=== PATIENT | female | born 1955 | race Caucasian/White ===

== ENCOUNTER 2016-07-11 00:27 | Inpatient (IN) | payer OTHER ==
[~2016-07-11] VITALS: Ht 157.5 cm; Wt 79.4 kg
--- NOTE | 2016-07-11 00:32 | ED CARDIAC/CP/PALPITATIONS ---
History of Present Illness General Chief Complaint: General Adult Stated Complaint: BIBA FOR EVAL OF STEMI Source: patient Exam Limitations: no limitations Vital Signs & Intake/Output Vital Signs & Intake/Output Vital Signs Date Time Temp Pulse Resp B/P Pulse O2 O2 Flow FiO2 Ox Delivery Rate 07/11 0211 100.3 118 18 88/62 98 Nasal 2.0L Cannula 07/11 0110 75 18 96/71 98 Nasal 2.0L Cannula 07/11 0100 99 Non 10L ReBreather 07/11 005 99.4 130 20 95/77 94 Non 10L ReBreather 07/11 0055 114 103/80 07/11 0040 86 20 104/67 98 Non 10L ReBreather 07/11 0039 164 20 127/73 07/11 003 164 20 127/73 99 Non 10L ReBreather Allergies Coded Allergies: MDX - Atorvastatin (From LIPITOR) ('AFFECTED MY LIVER', KIDNEY PROBLEM 01/03/12) Triage Nurses Notes Reviewed? yes Onset: Gradual Duration: hour(s): Timing: single episode today Quality/Severity: moderate, severe Location: substernal Radiation: no radiation Activities at Onset: none Prior Chest Pain/Card Workup: heart attack Aspirin Today: 325 mg x 1, provided by EMS HPI: 60 yo woman presents with palpitations. She shares that she had a pacer/defibrillator and that, "it went off at least 9 times." She notes that she feels her heart rate is rapid, but feels no chest pain or shortness of breath. She called 911. The medics found her pulse to be 180's, sbp 140's. Past History Travel History Traveled to [place] past 21 day No Medical History Any Pertinent Medical History? see below for history Cardiovascular: AFIB, CAD, hypertension Surgical History Surgical History: pacer/defibrillator Psychosocial History Who do you live with Patient/Self What is your primary language Eritrean Family History Hx Contributory? No Review of Systems Review of Systems Constitutional: Reports: no symptoms. EENTM: Reports: no symptoms. Respiratory: Reports: no symptoms. Cardiovascular: Reports: no symptoms. GI: Reports: no symptoms. Genitourinary: Reports: no symptoms. Musculoskeletal: Reports: no symptoms. Skin: Reports: no symptoms. Neurological/Psychological: Reports: no symptoms. Hematologic/Endocrine: Reports: no symptoms. Immunologic/Allergic: Reports: no symptoms. All Other Systems: Reviewed and Negative Physical Exam Physical Exam General Appearance: well developed/nourished, mild distress, moderate distress Head: atraumatic, normal appearance Eyes: Bilateral: normal appearance. Ears, Nose, Throat: normal pharynx, normal ENT inspection, hearing grossly normal Neck: normal inspection, supple, full range of motion Respiratory: normal breath sounds, chest non-tender, no respiratory distress, quiet respiration, lungs clear Cardiovascular: tachycardic Rectal: heme negative stool Back: normal inspection Extremities: normal inspection, normal capillary refill, normal range of motion, 1+edema Skin: intact, normal color, warm/dry Core Measures ACS in differential dx? Yes Severe Sepsis Present: No Septic Shock Present: No Progress Differential Diagnosis: AMI, atrial fibrillation, CHF/pulm edema, hypovolemia, musculoskeletal pain, pneumonia Plan of Care: Orders Procedure Date/time Status Patient Data 07/11 253 Active Admit to inpatient 07/11 0246 Active EKG 07/11 0128 Active B-TYPE NATRIURETIC PEP (BNP) 07/11 003 Complete TROPONIN LEVEL 07/11 31 Complete PARTIAL THROMBOPLASTIN TIME 07/11 31 Complete PROTHROMBIN TIME 07/11 003 Complete MAGNESIUM 07/11 003 Complete COMPREHENSIVE METABOLIC PANEL 07/11 003 Complete CBC WITHOUT DIFFERENTIAL 07/11 31 Complete EKG 07/11 0029 Active Current Medications Sig/Wilma Start time Last Medication Dose Stop Time Status Admin Metoprolol Tartrate 5 MG ONCE ONE 07/11 0130 CAN (Lopressor Inj. 5MG 07/11 0131 Per 5 Ml) Diltiazem HCl 125 MG Q24H 07/11 0115 CAN (Cardizem DRIP) Dextrose/Water 100 ML (Dextrose 5%) Diltiazem HCl 125 MG Q12H 07/11 0045 CAN (Cardizem DRIP) Sodium Chloride 100 ML (Normal Saline 0.9%) Laboratory Tests 07/11/16 0035: Anion Gap 17 H, Estimated GFR 20 L, BUN/Creatinine Ratio 13.6, Glucose 130 H, Calcium 9.6, Magnesium 1.5 L, Total Bilirubin 1.8 H, AST 38 H, ALT 28, Alkaline Phosphatase 108, Troponin I 0.50 *H, Igi-U-Dnjodjqtjrp Pept 8500 H, Total Protein 8.7 H, Albumin 4.2, Globulin 4.5 H, Albumin/Globulin Ratio 0.9 L, PT 14.7 H, INR 1.40 H, APTT 30, CBC w Diff NO MAN DIFF REQ, RBC 4.27, MCV 91.7, MCH 30.6, RDW 15.9 H, MPV 9.2, Gran % 76.2 H, Lymphocytes % 14.3 L, Monocytes % 9.0, Eosinophils % 0.1, Basophils % 0.4, Absolute Granulocytes 12.7 H, Absolute Lymphocytes 2.4, Absolute Monocytes 1.5 H, Absolute Eosinophils 0, Absolute Basophils 0.1, PUBS MCHC 33.4 07/11/16 0033: Rxk-K-Kgrxxztcsok Pept Cancelled Diagnostic Imaging: Viewed by Me: Radiology Read. Discussed w/RAD: Radiology Read. CXR Impression: no acute abnormality, no infiltrates, normal size heart, normal mediastinum Initial ED EKG: wide complex pulse in 180's Comments: PATIENT: FEI ROMERO PRESENT AGE: 60 PATIENT ACCOUNT NO: [id number] : 59 LOCATION: [facility] ORDERING PHYSICIAN: NATO FONTAINE MD SERVICE DATE: 07/11/16 EXAM TYPE: RAD - XRY-PORTABLE CHEST XRAY EXAMINATION: XR PORTABLE CHEST CLINICAL INFORMATION: Tachycardia. Shortness of breath COMPARISON: 01/03/2012 TECHNIQUE: Portable view of the chest was obtained. FINDINGS: Left chest wall AICD/pacer is unchanged. Median sternotomy wires appear intact. Surgical clips overlie the mediastinum. Cardiac leads overlie the chest. The lungs are well expanded. There is no dense consolidation, edema, or effusion. No pneumothorax. The cardiac silhouette remains prominent. No acute osseous abnormality. IMPRESSION: No acute pulmonary findings. DICTATED BY: TOMMY DEL ANGEL MD DATE/TIME DICTATED:07/11/1651 MAJOR ASSEMBLY INSPECTOR:SILVANA DATE/TIME TRANSCRIBED:07/11/1651 CONFIDENTIAL, DO NOT COPY WITHOUT APPROPRIATE AUTHORIZATION. <Electronically signed in Other Vendor System> SIGNED BY: TOMMY DEL ANGEL MD 07/11 Departure Departure Disposition: STILL A PATIENT Condition: Stable Clinical Impression Primary Impression: Atrial fibrillation with rapid ventricular response Secondary Impressions: Defibrillator discharge, Elevated troponin, Renal failure Referrals: FARENS MD,VALENTIN. Departure Forms: Customer Survey General Discharge Information Comments 07/11/16, 1;28am.... received notice of elevated troponin of 0.5... pt received aspirin 324mg en route via medics. Pt on heparin gtt. BBlocker held at present due to hypotension. Admission Note Spoke With: GIGI BOYD MD, V. Documentation of Exam: Documentation of any treatments & extenuating circumstances including Concerns Regarding Discharge (functional status, medication knowledge or non-compliance, living conditions, etc.) that warrant an admission rather than observation: pt in afib with rapid ventricular response, requires diltiazem drip. Pt also with positive troponin and recurrent defibrillator discharge and new onset renal failure... Pt merits icu admission for intensive medical management. Pt on heparin gtt, asprin given by medics. Bblocker held due to relative hypotension. Critical Care Note Critical Care Note Critical Care Time: 30-74 min
--- NOTE | 2016-07-11 00:35 | NUR ---
TRIAGE: BIBA FROM HOME S/P WOKE FROM SLEEP TO DEFIBRILATOR GOING OFF, REPORTS HX CA W/ CARDIAC CATH. ALSO REPORTING HX AFIB, NOT TAKING COUMADIN D/T BLADDER SURGERY LAST WEEK W/ BLADDER STENT PLACEMENT, WAS TO RESUME COUMDIN ON 07/11/16. HR: 130-170 AFIB ON MONITOR ON ARRIVAL, PATIENT ANXIOUS. DENIES ANY CP. REPORTING INTERMITTENT DRY HEAVES W/ NO VOMITTING. MD AT BEDSIDE ON ARRIVAL.
[2016-07-11 00:48] LABS: ABSOLUTE BASOPHIL COUNT 0.1 /CUMM (0.0-0.2); ABSOLUTE EOSINOPHIL COUNT 0 /CUMM (0.0-0.7); ABSOLUTE GRANULOCYTE CT 12.7 /CUMM (1.4-6.5); ABSOLUTE LYMPH COUNT 2.4 /CUMM (1.2-3.4); ABSOLUTE MONOCYTE COUNT 1.5 /CUMM (0.10-0.60); BASOPHIL % 0.4 % (0.0-2.0); EOSINOPHIL % 0.1 % (0-5); HEMATOCRIT 39.1 % (37-47); MEAN CORPUSCULAR HGB 30.6 PG (27.0-31.0); MEAN CORPUSCULAR HGB CONC 33.4 G/DL (33.0-37.0); MEAN CORPUSCULAR VOLUME 91.7 FL (81.0-99.0); MEAN PLATELET VOLUME 9.2 FL (7.4-10.4); PLATELET COUNT 93 /CUMM (130-400); RBC DISTRIBUTION WIDTH 15.9 % (11.5-14.5); RED BLOOD CELL CT 4.27 /CUMM (4.20-5.40); WHITE BLOOD CELL COUNT 16.7 /CUMM (4.8-10.8)
[2016-07-11 00:49] LABS: GRANULOCYTE % 76.2 % (42.2-75.2)
--- NOTE | 2016-07-11 00:57 | RADIOLOGY REPORT ---
EXAMINATION: XR PORTABLE CHEST CLINICAL INFORMATION: Tachycardia. Shortness of breath COMPARISON: 01/03/2012 TECHNIQUE: Portable view of the chest was obtained. FINDINGS: Left chest wall AICD/pacer is unchanged. Median sternotomy wires appear intact. Surgical clips overlie the mediastinum. Cardiac leads overlie the chest. The lungs are well expanded. There is no dense consolidation, edema, or effusion. No pneumothorax. The cardiac silhouette remains prominent. No acute osseous abnormality. IMPRESSION: No acute pulmonary findings.
[2016-07-11 00:59] LABS: PT 14.7 SEC (9.4-12.5); PTT 30 SEC (25-37)
--- NOTE | 2016-07-11 01:00 | NUR ---
PATIENT BP:103/80, MD AWARE. PATIENT ALSO REPORTING FEELING CLAMMY. NS BOLUS INITIATED AT THIS TIME PER MD/EMAR. TOLERATING WELL.
--- NOTE | 2016-07-11 01:15 | NUR ---
MD ZHEN DELGADOCED PATIENT, GUIAC NEGATIVE PER . HEPARIN BOLUS ADMINISTERED PER EMAR. TOLERATED WELL. HEPARIN DRIP INITIATED AT 19.1ML/HR, DOSE COMFIRMED W/ BETTYE GARCIA. CARDIZEM DRIP INITIATED AT 5ML/HR PER MD FONTAINE. TOLERATING WELL. HR:75-135 ON MONITOR, A-FIB W/ BRANCH BLOCK. PATIENT SWITCHED FROM NRB TO NASAL CANNULA AT 2L, O2:99% 2LNC.
--- NOTE | 2016-07-11 01:19 | NUR ---
SPOKE WITH PTS SON (RADHA [phone]), IS AWARE THAT PT IS HERE, IS GOING TO COME IN THE MORNING, WOULD LIKE TO BE CALLED WITH UPDATES
--- NOTE | 2016-07-11 01:24 | NUR ---
CRITICAL TEST RESULTS [id number] FEI ROMERO 60 F TESTS AND RESULTS: TROPONIN 0.50 Results received and read back by: BETTYE SNYDER Results received date and time: 07/11/16 0124 The following provider was notified of the results, and read the results back: Notified date and time: 07/11/16 at 0125
--- NOTE | 2016-07-11 01:37 | NUR ---
DR PA OFFICE CALLED AT THIS TIME FOR REQUEST OF TRANSFERR. CARTOGRAPHIC TECHNICIAN SERVICE WILL NOTIFY CARTOGRAPHIC TECHNICIAN DR TO RETURN CALL TO ER ATTENDING.
--- NOTE | 2016-07-11 02:04 | NUR ---
[facility] [employer] SERVICE CALLED BACK AND IS UNABLE TO CONTACT DR WILL CONTINUE TO TRY. DR FONTAINE NOTIFIED OF SITUTATION.
--- NOTE | 2016-07-11 02:07 | NUR ---
HR: 90-108 ON MONITOR, AFIB W/ BRANCH BLOCK REMAINS. PATIENT CONTINUES TO DENY ANY PAIN.
--- NOTE | 2016-07-11 02:21 | NUR ---
PATIENT ALERT AND ORIENTED X3, NOTED W/ MANUAL BP:88/62. FIRST LITER NS BOLUS COMPLETE, SECOND LITER NS INITIATED AT PRESENT PER EMAR/ DISCUSSION W/ MD FONTAINE. TOLERATING WELL. HR:100-126 ON MONITOR.
--- NOTE | 2016-07-11 02:54 | History & Physical ---
TANYA RAZA 07/11/16 0250: General Information and HPI MD Statement: I have seen and personally examined FEI VALLES and documented this H&P. The patient is a 60 year old F who presented with a patient stated chief complaint of [difibrillator dicharge]. Source of Information: patient, family Exam Limitations: poor historian History of Present Illness: Mrs Valles is a 60-year-old lady with an extensive cardiac history including atrial fibrillation on Coumadin, CAD with triple-vessel disease S/P CABG 2005, stent placement 2006, pacemaker/defibrillator implantation (2007), right femoral DVT, TIA, right carotid endarterectomy, bladder cancer S/P resection most recently on 07/02/2016 which also included bilateral stent placement, depression , anxiety, previous tobacco use, low back pain/left shoulder pain. Patient presented today with complaints of what she described as defibrillator discharge. She recently underwent a repeat bladder resection with bilateral ureteral stent placement for bladder CA on 07/02/2016 prior to which Coumadin was held for a few days. 2 days later she reports feeling a sensation of an electric jolt running across her face resulting in jaw clamping including an episode of tongue biting. She denies any LOC, headache, blurry vision associated with this but does endorse intermittent episodes of chills over the past couple of weeks. Allergies/Medications Allergies: Coded Allergies: atorvastatin (From Lipitor) ('AFFECTED MY LIVER'; KIDNEY PROBLEM? 07/11/16) Home Med list Amiodarone in Dextrose,Iso-Osm (Nexterone 360 MG/200 Ml Bag) 360 MG/200 ML (1.8 MG/ML) PLAST..BAG 1 UNIT IV SI HEART RATE AND RHYTHM RUN FOR FIRST SIX HOURS AT 1MG/MINUTE ( 360MG) NEXT 18 HOURS AT 0.5MG.MINUTE ( 540 MG) Duloxetine HCl (Cymbalta) 60 MG CAPSULE.DR 1 CAP PO DAILY PAIN MX (Reported) Furosemide (Lasix) 20 MG TABLET 1 TAB PO DAILY WATER PILL (Reported) Heparin (Heparin-1/2NS 25,000 Units/500) 25,000 UNIT/500 ML (50 UNIT/ML) IV.SOLN 12 u/H IV CONTINOUS INFUSION BLOOD THINNER 19ML/HOUR OF HEPARIN (12 UNITS/KG/HOUR) Isosorbide Mononitrate (Isosorbide Mononitrate ER) 60 MG TAB.ER.24H 1 TAB PO DAILY HEART HEALTH (Reported) Morphine Sulfate (Ms Contin) 30 MG TABLET.ER 1 TAB PO BIDP CHRONIC PAIN ( Reported) Morphine Sulfate (Ms Contin) 15 MG TABLET.ER 1 TAB PO BID PAIN MX (Reported) Oxycodone HCl (Roxicodone) 30 MG TABLET 1-2 TAB PO Q6P PRN CHRONIC PAIN ( Reported) Valsartan (Diovan) 80 MG TABLET 1 TAB PO DAILY BLOOD PRESSURE (Reported) Past History Travel History Traveled to [place] past 21 day No Medical History Neurological: NONE EENT: NONE Cardiovascular: AFIB, CAD, hypertension Respiratory: NONE Gastrointestinal: NONE Hepatic: NONE Renal: NONE Musculoskeletal: NONE Psychiatric: NONE Endocrine: NONE Blood Disorders: NONE Cancer(s): bladder cancer MACHINE I TRIMMER/Reproductive: NONE Surgical History Surgical History: pacer/defibrillator Past Family/Social History Functional Ability ADLs Independent: dressing, eating, toileting, bathing. Ambulation: independent Review of Systems Review of Systems Constitutional: Reports: see HPI. EENTM: Reports: no symptoms. Cardiovascular: Reports: see HPI. Respiratory: Reports: no symptoms. GI: Reports: no symptoms. Genitourinary: Reports: no symptoms. Musculoskeletal: Reports: no symptoms. Exam & Diagnostic Data Last 24 Hrs of Vital Signs/I&O Vital Signs & Intake/Output Vital Signs & Intake/Output Vital Signs Date Time Temp Pulse Resp B/P Pulse O2 O2 Flow FiO2 Ox Delivery Rate 07/11 0211 100.3 118 18 88/62 98 Nasal 2.0L Cannula 07/11 0110 75 18 96/71 98 Nasal 2.0L Cannula 07/11 0100 99 Non 10L ReBreather 07/11 0059 99.4 130 20 95/77 94 Non 10L ReBreather 07/11 0055 114 103/80 07/11 0040 86 20 104/67 98 Non 10L ReBreather 07/11 0039 164 20 127/73 07/11 0035 164 20 127/73 99 Non 10L ReBreather Physical Exam General Appearance Alert, Cooperative, No Acute Distress Skin No Breakdown HEENT PERRLA, Mucous Membr. moist/pink Cardiovascular Normal S1, Normal S2 Lungs Clear to Auscultation, Normal Air Movement Abdomen Normal Bowel Sounds, Soft, No Tenderness Neurological Normal Speech, Normal Tone Extremities No Cyanosis, Normal Pulses Vascular Pulses Symmetrical Last 24 Hrs of Labs/Nahum: 07/11/16 0035: Anion Gap 17 H, Estimated GFR 20 L, BUN/Creatinine Ratio 13.6, Glucose 130 H, Calcium 9.6, Magnesium 1.5 L, Total Bilirubin 1.8 H, AST 38 H, ALT 28, Alkaline Phosphatase 108, Troponin I 0.50 *H, Niw-D-Cgjycijkzdy Pept 8500 H, Total Protein 8.7 H, Albumin 4.2, Globulin 4.5 H, Albumin/Globulin Ratio 0.9 L, PT 14.7 H, INR 1.40 H, APTT 30, CBC w Diff NO MAN DIFF REQ, RBC 4.27, MCV 91.7, MCH 30.6, RDW 15.9 H, MPV 9.2, Gran % 76.2 H, Lymphocytes % 14.3 L, Monocytes % 9.0, Eosinophils % 0.1, Basophils % 0.4, Absolute Granulocytes 12.7 H, Absolute Lymphocytes 2.4, Absolute Monocytes 1.5 H, Absolute Eosinophils 0, Absolute Basophils 0.1, PUBS MCHC 33.4 Assessment/Plan Assessment: 60-year-old lady with an extensive cardiac history including atrial fibrillation on Coumadin, CAD with triple-vessel disease S/P CABG 2005, stent placement 2006, pacemaker/defibrillator implantation (2007), right femoral DVT, TIA, right carotid endarterectomy, bladder cancer S/P resection most recently on 07/02/2016 which also included bilateral stent placement, depression, anxiety, previous tobacco use, low back pain/left shoulder pain who presented today with complaints of defibrillator discharge. Problem list: 1. Probable pacemaker/defibrillator discharge 2. Narrow complex tachycardia 3. Elevated troponin 4. SIRS - Tmax 100.3, leukocytosis 16.7, HR > 100. UA: (+) large leukocyte esterase, nitrites, >75 WBCs 5. LYNNE vs undiagnosed CKD 6. Hyperkalemia Plan: * Admit to telemetry for continuos cardiac monitoring, Serial EKGs. Elevation in troponins likely secondary to narrow complex tachycardia vs defibrillator discharge. If symptomatic w/ chest pain will start her on heparin drip per ACS protocol. Cardiology consulted at this time. Plan for medtronic interrogation in the AM. Lipid panel for the AM * Rate control with cardizem GTT * Follow up urine and blood cultures. IV cephalosporin for UTI * Unsure as to her current baseline creatinine. Will adminsiter fluid resuscitation with NS, follow up renal function in the AM, K+ level. Echo in the am to assess EF * DVT prophylaxis: heparin * Diet: heart healthy * Cose status: full code As Ranked By This Provider Problem List: 1. Defibrillator discharge 2. Elevated troponin 3. Renal failure 4. Atrial fibrillation with rapid ventricular response 5. UTI (urinary tract infection) Core Measures/Miscellaneous Acute Coronary Syndrome ACS Diagnosis: No Cerebrovascular Accident CVA/TIA Diagnosis: No Congestive Heart Failure CHF Diagnosis: No Venous Thromboembolism VTE Risk Factors: Age > 40 VTE Prophylaxis Ordered Inpt: Pharm- Heparin No Mech VTE prophylaxis d/t: No contraindications No VTE Pharm Prophylaxis d/t: No contraindications VTE Diagnosis: No VTE Type: NONE VTE Confirmed by (Test): NONE Severe Sepsis Severe Sepsis Present: No Septic Shock Septic Shock Present: No Miscellaneous Documentation Attending Case Discussed With: GIGI BOYD MD, V. Primary Care Physician: UNKNOWN Patient sees these Specialists Dr Serrano (senior clinician at [place]) Level of Patient Care: Telemetry Resident Review Statement Resident Statement: examined this patient, discussed with newsroom intern, agreed with newsroom intern, discussed with family, reviewed EMR data (avail), discussed with nursing , reviewed images GIGI BOYD MD 07/11/16 0954: Review of Systems Review of Systems Constitutional: Reports: no symptoms, see HPI. Attending MD Review Statement Attending Statement Attending MD Statement: examined this patient, discuss w/resident/PA/INDUSTRIAL LABORER, reviewed EMR data (avail) Attending Assessment/Plan: This patient is a very complicated 60-year-old female who had myocardial infarction in 2005 followed by urgent bypass surgery. She subsequently received a defibrillator which was replaced about a year or 2 ago. This is a biventricular defibrillator device. Last evening the patient had by her count 9 defibrillator shocks and was brought to the emergency department. She actually gets most of her care in [place] but the ambulance took her to [facility], which was the closest hospital because she seemed unstable. Subsequently since she has been here she has not had any further defibrillator discharges. Her rhythm on the monitor appears to be mostly atrial fibrillation with biventricular pacing and occasional runs of what appear to be ventricular tachycardia versus rapid atrial fibrillation. Her initial electrocardiogram taken in the emergency department is consistent with ventricular tachycardia at a rate of 164. Subsequent EKGs have shown atrial fibrillation with biventricular pacing and some PVCs. Some of the monitor strips suggest short runs of ventricular tachycardia as well. She has been started on amiodarone. The patient is aware that she has atrial fibrillation. She is on warfarin but she states she is on this mainly for antiphospholipid syndrome. The patient states she has not previously had defibrillator discharges. She describes shortness of breath on exertion but no chest pains on exertion. She states in the past she was considered for heart transplant but was eventually turned down for this. On physical today she is awake and alert. She has no chest pain or shortness of breath. She appears to be in atrial fibrillation with some pacing on the monitor. Her chest is clear. Her heart reveals irregular rhythm but no murmurs. There is no peripheral edema. Her initial troponin was 0.5 but has increased to 5.5. Her device was extensively interrogated with the [employer] sales representative groceries. It appears that she had 8 shocks for tachycardia which on evaluation appear to all be rapid atrial fibrillation. she also had atrial tachycardia and atrial fibrillation greater than the last day. Most likely this patient had defibrillator shocks secondary to rapid atrial fibrillation, which is relatively new rhythm for her. She has been started on amiodarone and IV heparin for this. I discussed her case with Dr. Juany Phan who is covering for her regular doctor, Dr. Serrano in [place]. She agrees to take the patient in transfer to [facility] at this time. An echocardiogram has been done and will be sent with her.
--- NOTE | 2016-07-11 02:59 | NUR ---
HOUSE STAFF AT BEDSIDE. REPEAT BP ON PROGRESS.
--- NOTE | 2016-07-11 03:02 | NUR ---
BP:86/60, HOUSE STAFF AWARE. SECOND LITER NS CONTINUES TO INFUSE.
--- NOTE | 2016-07-11 03:03 | NUR ---
PER MD FONTAINE, CARDIZEM DRIP STOPPED AT THIS TIME. HOUSE STAFF AWARE. PER , 3RD LITER NS TO BE INITIATED AT THIS TIME. 3RD LITER INFUSING AT PRESENT PER EMAR. TOLERATING WELL.
--- NOTE | 2016-07-11 03:18 | NUR ---
PATIENT VOIDED APPROX 220ML CLOUDY YELLOW URINE INTO HAT IN TOILET IN ROOM. DENIES DIZZINESS/ LIGHTHEADEDNESS W/ AMBULATION. URINE SPECIMEN OBTAINED AND SENT TO LAB ([facility]).
--- NOTE | 2016-07-11 03:28 | NUR ---
MD ERNANDEZ (BEEPER [id number]) AT BEDSIDE W/ PATIENT, DISCUSSED POC, PATIENT TO BE ICU ADMIOT BE MD BOYD FOR RISK FOR CARDIAC CATH, PER AL, CONSIDERING CENTRAL LINE PLACEMENT. AT BEDSIDE W/ PATIENT.
--- NOTE | 2016-07-11 04:26 | NUR ---
THIRD LITER NS COMPLETE. CURRENT BP: 88/62. PATIENT REMAINS ALERT AND ORIENTED. ORDERS BEING PLACED BY MD ERNANDEZ (BEEPER [id number]).
--- NOTE | 2016-07-11 04:37 | NUR ---
SPOKE W/ AL (BEEPER 188) REGADING PATIENT CURRENT VITAL SIGNS. MD SPEAKING TO ER MD AT THIS TIME.
--- NOTE | 2016-07-11 05:03 | NUR ---
BLOOD CULTURES OBTAINED AND SENT TO LAB BY MARINA GARCIA AND RK LEW.
--- NOTE | 2016-07-11 05:06 | NUR ---
SPOKE W/ HOUSE STAFF AND MAYELA BLACK TO INITIATE AND INFUSE 4TH LITER NS D/T CONTINUED LOW BP. PER MD, IN 1 HOUR, RECHECK PATIENT BP, IF SYSTOLIC IS 85 OR LESS, CENTRAL LINE WILL BE PLACED, IF SYSTOLIC 86 OR ABOVE, CENTRAL LINE WILL NOT BE PLACED AT THIS TIME.
--- NOTE | 2016-07-11 05:08 | NUR ---
PATIENT BEING PLACED INTO HOSPITAL BED AT THIS TIME D/T DISCOMFORT FROM ER STRETCHER, INFORMED OF DELAY TRANSPORTING TO FLOOR, PATIENT UNDERSTANDABLE. PATIENT REPOSITIONING SELF IN HOSPITAL BED W/O DIFFICULTY FOR COMFORT.
--- NOTE | 2016-07-11 06:18 | NUR ---
PATIENT MEDICATED W/ FORTAZ PER EMAR. TOLERATED WELL. PATIENT BLOODWORK OBTAINED AND SENT TO LAB (LAV, SST, BLUE X 2). MD ERNANDEZ (BEEPER [id number]) AWARE OF CURRENT BP:101/52, HR:72-95 ON MONITOR. IT SOFTWARE DEVELOPER AWARE OF BP AND NO INDICATION FOR CENTRAL LINE AT THIS TIME. AWAITING CALL FROM ICU.
[2016-07-11 06:22] LABS: ABSOLUTE BASOPHIL COUNT 0 /CUMM (0.0-0.2); ABSOLUTE EOSINOPHIL COUNT 0 /CUMM (0.0-0.7); ABSOLUTE GRANULOCYTE CT 5.1 /CUMM (1.4-6.5); ABSOLUTE LYMPH COUNT 1.3 /CUMM (1.2-3.4); ABSOLUTE MONOCYTE COUNT 0.7 /CUMM (0.10-0.60); BASOPHIL % 0.5 % (0.0-2.0); EOSINOPHIL % 0 % (0-5); GRANULOCYTE % 70.8 % (42.2-75.2); MEAN CORPUSCULAR HGB 30.8 PG (27.0-31.0); MEAN CORPUSCULAR HGB CONC 33.1 G/DL (33.0-37.0); MEAN CORPUSCULAR VOLUME 93.1 FL (81.0-99.0); MEAN PLATELET VOLUME 8.3 FL (7.4-10.4); PLATELET COUNT 55 /CUMM (130-400); RBC DISTRIBUTION WIDTH 16.1 % (11.5-14.5)
[2016-07-11 06:32] LABS: HEMATOCRIT 28.4 % (37-47); RED BLOOD CELL CT 3.05 /CUMM (4.20-5.40); WHITE BLOOD CELL COUNT 7.3 /CUMM (4.8-10.8)
--- NOTE | 2016-07-11 06:40 | NUR ---
SPOKE W/ CYLINDER MACHINE OPERATOR PULP DRIER EFREN. DAY RN WILL CALL AT 0700 FOR REPORT.
[2016-07-11 06:41] LABS: PTT 67 SEC (25-37)
[2016-07-11 06:43] LABS: PT 15.5 SEC (9.4-12.5)
--- NOTE | 2016-07-11 06:49 | NUR ---
PTT-67, NO CHANGE REQUIRED FOR HEPARIN DRIP RATE PER POLICY. SPOKE W/ MD ERNANDEZ (BEEPER [id number]) REGARDING PATIENT DECREASE IN H&H AND PLATELETS IN REPEAT BLOODWORK AND POSITIVE D-DIMER. MD CALLING CARDIOLOGY TO DETERMINE IF PATIENT WILL REMAIN ON HEPARIN DRIP AND IF CTA WILL BE ORDERED.
--- NOTE | 2016-07-11 07:01 | NUR ---
D/C HEPARIN DRIP PER MD ERNANDEZ (BEEPER 188), UNKNOWN IF CTA WILL BE OBTAINED D/T AWAITING RENAL FUNCTION PER MD WILL DETERMINE WHEN BLOODWORK RESULTS.
--- NOTE | 2016-07-11 07:07 | NUR ---
HEPARIN DRIP D/SERGEY PER .
--- NOTE | 2016-07-11 07:08 | NUR ---
NO CTA PER ICU MD AND DISCUSSION W/ POURED CONCRETE WALL TECHNICIANJOSE SCHWARTZ. AWAITING CALL FROM ICU FOR REPORT.
--- NOTE | 2016-07-11 07:23 | NUR ---
REPORT CALLED IN AMBROSIO GARCIA AT ICU.
--- NOTE | 2016-07-11 07:51 | NUR ---
PT ADMITTED TO [facility]CU WITH RAPID AFIB,+TROPONIN. VSS. AFIB 90S. NO C/O CP,SOB. PT IS A/OX3.
[2016-07-11 08:00] VITALS: BP 119/74
--- NOTE | 2016-07-11 09:00 | NUR ---
150MG IV AMIODARONE BOLUS GIVEN. VSS.
[2016-07-11 09:14] VITALS: BP 121/71
--- NOTE | 2016-07-11 09:30 | NUR ---
AMIODARONE GTT STARTED AT 33.3ML/HR. VSS
[2016-07-11] MEDS ORDERED: LASIX20 M1 PO (12:03)
[2016-07-11] MEDS ORDERED: MS CONTIN30 M1 PO (12:03)
[2016-07-11] MEDS ORDERED: ISOSORBIDE MONO60 M1 PO (12:04)
[2016-07-11] MEDS ORDERED: CYMBALTA60 M1 PO (12:04)
[2016-07-11] MEDS ORDERED: DIOVAN80 M1 PO (12:05)
[2016-07-11] MEDS ORDERED: COUMADIN2.5 M1 PO (12:05)
[2016-07-11] MEDS ORDERED: ROXICODONE30 M1 PO (12:06)
[2016-07-11] MEDS ORDERED: MS CONTIN15 M2 PO (12:10)
[2016-07-11] MEDS ORDERED: CEFTAZIDIME1 G2 IV (12:13)
[2016-07-11] MEDS ORDERED: HEPARIN-1/25000 UNI1 IV (12:13)
[2016-07-11] MEDS ORDERED: NEXTERONE360 MG/200 IV (12:18)
--- NOTE | 2016-07-11 12:22 | Patient Discharge Instructions ---
Discharge Instructions General Discharge Information You were seen/treated for: DEFRIBRILLATOR SHOCK, POSITIVE TROPONIN, A FIBRILLATION WITH VENTRICULAR TACHYCARDIA. Diet Continue normal diet: No Recommended Diet: Heart Healthy Acute Coronary Syndrome Inclusion Criteria At DC or during hospital stay patient has or had the following: ACS DIAGNOSIS No Discharge Core Measures Meds if any: Prescribed or Continued at Discharge Meds if any: NOT Prescribed or Continued at Discharge Congestive Heart Failure Inclusion Criteria At DC or during hospital stay patient has or had the following: CHF DIAGNOSIS No Discharge Core Measures Meds if any: Prescribed or Continued at Discharge Meds if any: NOT Prescribed or Continued at Discharge Cerebrovascular accident Inclusion Criteria At DC or during hospital stay patient has or had the following: CVA/TIA Diagnosis No Discharge Core Measures Meds if any: Prescribed or Continued at Discharge Meds if any: NOT Prescribed or Continued at Discharge Venous thromboembolism Inclusion Criteria VTE Diagnosis No VTE Type NONE VTE Confirmed by (Test) NONE Discharge Core Measures - Per Current guidelines, there needs to be overlap - treatment for the first 5 days of Warfarin therapy. - If discharged on Warfarin prior to 5 days of - overlap therapy, the patient will need to be - assessed for post discharge needs including - *Post discharge parental anticoagulation - *Warfarin and/or parental anticoagulation education - *Follow up date to check INR post discharge At least 5 days overlap therapy as Inpatient No Meds if any: Prescribed or Continued at Discharge Note: Overlap Therapy is Warfarin and Anticoagulant Meds if any: NOT Prescribed or Continued at Discharge
--- NOTE | 2016-07-11 12:22 | Discharge Summary ---
See Addendum Visit Information Visit Dates Admission Date: 07/11/16 Discharge Date: 07/11/16 Hospital Course Course Attending Physician: OLIVER OLSON,ANDREI Kothari Primary Care Physician: UNKNOWN Hospital Course: This is a 60-year-old lady with an extensive cardiac history, coronary artery disease with triple-vessel disease status post CABG (2005), status post stent placement (2006), pace maker/defibrillator implantation (2007), right femoral DVT, TIA, right carotid endarterectomy, bladder cancer status post resection most recently on 07/02/2016 which also included bilateral stent placement, depression, anxiety, previous tobacco use, low back pain/left shoulder pain (on chronic pain management)presented overnight on 07/11/2016 chief complain of what she described as defibrillator discharge, on at least 9 occassions. 2 days after a repeat bladder resection with bilateral ureteral stent placement on 07/02/2016, she reported feeling a sensation of an electric jolt running across her face resulting in chocolate clamping including an episode of tongue biting.Since last evening ( 07/10/2016), as per the patient she had by her count 9 defibrillator shocks and was brought to the emergency department. She normally gets most of her care from [facility], however she was brought to [facility] because this was the closest hospital as she seemed unstable. After coming to the emergency department she did not had any further defibrillator discharges. She was admitted to the ICU. Her rhythm today morning on the monitor appeared to be mostly atrial fibrillation with biventricular pacing and occasional runs of what appears to be ventricular tachycardia. Her initial EKG taken in the emergency department was consistent with ventricular tachycardia at a rate of 164. Subsequent EKGs have shown atrial fibrillation with biventricular pacing and some PVCs. Some of the monitor strip suggests short runs of ventricular tachycardia as well. She denied any chest pain, shortness of breath, dizziness, lightheadedness. She is stable, awake and alert. At the emergency department she had a temperature of 100.3, maximum pulse of 164 , minimum of 75, her blood pressure be word from 88/62 to a max of 127/73 while at the emergency department. Labwise she had a white count of 16.7, H/H of 13.1/39.1, platelet of 93. E lites sodium of 136, potassium of 5.2, BUN/creatinine of 34/2.5, magnesium of 1.5, total bilirubin of 1.8, AST 38, ALT alkaline phosphatase within normal limits. ProBNP was elevated at 8500,calcium was low at 8.0. Initial set of troponin was found to be 0.50, next set of troponin was elevated at 5.55 ,Anion gap of 17.Amylase and lipase along with TSH and free T4 within normal limit. Of note her platelet count on subsequent lab,reduced to 55 from 93 Lipid Profile was done which was within normal limit, HDL low at 28. Her chest x-ray showed left chest wall AICD/pacer, which was unchanged from before, median sternotomy wires appear intact, surgical clips overlying the mediastinum. Lungs were well expanded, no consolidation, edema or effusion, no pneumothorax. No acute cardio pulmonary findings. Problem List along with assessment and plan #1 Defibrillator shocks ( atleast 9 occasions) 2/2 new onset atrial fibrillation #2 Elevated troponin, rule out acute coronary syndrome. #3 Atrial fibrillation with biventricular pacing. #4 Elevated white count with fever #5 Chronic Pain #6 H/o CAD s/p stent #7 H/o bladder cancer s/p bilateral ureteral stent placement. * Her device was extensively interrogated with the [employer] product sales representative, it appeared that she had 8 shocks for tachycardia which on evaluation was found to be rapid atrial fibrillation. She also had atrial tachycardia, atrial fibrillation on the previous day as well, most likely the defibrillator shocks were secondary to the rapid atrial fibrillation which is relatively a new rhythm for her. * Patient was found to be in atrial fibrillation, therefore was started on amiodarone drip after 150 mg of amiodarone bolus. * She was also started on IV heparin,inspite of low platelet,as there was concerns with her second troponin was significantly elevated (0.50......5.55) , patient is currently continued on IV heparin. * An echocardiogram has been done, reporting is pending. * Urine cultures and blood cultures were sent from the emergency department, she was given one time of iv ceftaz ( due ot fever and white count) , which is held now. * Chest x-ray was found to be within normal limits, no acute cardio pulmonary findings. * Home medication of oxycodone 30 mg 1-2 tablets every 6 when necessary, MS Contin 60 mg twice a day in addition to 15 mg twice a day was continued. * Her other home medication of isosorbide mononitrate 60 mg once daily, Cymbalta 60 mg once daily, Lasix 20 mg once daily, valsartan 80 mg DAILY continued as well. * He normally takes Coumadin 5 mg on and 2.5 mg of other days, which was held as the patient currently is on IV heparin for anticoagulation. * We will transfer the patient to [facility], as she is more stable now , most of her care has been at [facility], our hospital pharmacist Andrei Amador MD, discussed the case with Dr. Juany Phan who is covering for her regular doctor, Dr. Serrano in [place]. She agrees to take the patient in transfer to [facility] at this time. Allergies: Coded Allergies: atorvastatin (From Lipitor) ('AFFECTED MY LIVER'; KIDNEY PROBLEM? 07/11/16) Significant Procedures: SERVICE DATE: 07/11/16 EXAM TYPE: RAD - XRY-PORTABLE CHEST XRAY EXAMINATION: XR PORTABLE CHEST CLINICAL INFORMATION: Tachycardia. Shortness of breath COMPARISON: 01/03/2012 TECHNIQUE: Portable view of the chest was obtained. FINDINGS: Left chest wall AICD/pacer is unchanged. Median sternotomy wires appear intact. Surgical clips overlie the mediastinum. Cardiac leads overlie the chest. The lungs are well expanded. There is no dense consolidation, edema, or effusion. No pneumothorax. The cardiac silhouette remains prominent. No acute osseous abnormality. IMPRESSION: No acute pulmonary findings. Pertinent Lab Results: Intake & Output 07/11 1600 07/11 0800 07/11 0000 Intake Total 3000 Output Total 220 Balance 2780 Intake, IV 3000 Output, Urine 220 Patient 79.379 kg Weight Laboratory Tests 07/11 07/11 0613 0613 Chemistry Sodium (137 - 145 mmol/L) 139 Potassium (3.5 - 5.1 mmol/L) 5.3 H Chloride (98 - 107 mmol/L) 107 Carbon Dioxide (22 - 30 mmol/L) 20 L Anion Gap (5 - 16) 11 BUN (7 - 17 mg/dL) 30 H Creatinine (0.5 - 1.0 mg/dL) 2.0 H Estimated GFR (>60 ml/min) 26 L Glucose (65 - 99 mg/dL) 114 H Calcium (8.4 - 10.2 mg/dL) 8.0 L Phosphorus (2.5 - 4.5 mg/dL) 3.1 Magnesium (1.6 - 2.3 mg/dL) 1.7 Total Bilirubin (0.2 - 1.3 mg/dL) 1.2 AST (14 - 36 U/L) 47 H ALT (9 - 52 U/L) 30 Troponin I (< 0.11 ng/ml) 5.55 *H Albumin (3.5 - 5.0 g/dL) 2.7 L Triglycerides (<150 mg/dL) 82 Cholesterol (<200 MG/DL) 114 LDL Cholesterol, Calc (65 - 129 mg/dL) 70 HDL Cholesterol (40 - 60 mg/dL) 28 L Cholesterol/HDL Ratio (0.00 - 4.23 %) 4 Coagulation PT (9.4 - 12.5 SEC) 15.5 H INR (0.90 - 1.19) 1.48 H APTT (25 - 37 SEC) 67 H D-Dimer (70 - 232 ng/ml) 950 H Hematology CBC w Diff NO MAN DIFF REQ WBC (4.8 - 10.8 /CUMM) 7.3 RBC (4.20 - 5.40 /CUMM) 3.05 L Hgb (12.0 - 16.0 G/DL) 9.4 L Hct (37 - 47 %) 28.4 L MCV (81.0 - 99.0 FL) 93.1 MCH (27.0 - 31.0 PG) 30.8 RDW (11.5 - 14.5 %) 16.1 H Plt Count (130 - 400 /CUMM) 55 L MPV (7.4 - 10.4 FL) 8.3 Gran % (42.2 - 75.2 %) 70.8 Lymphocytes % (20.5 - 51.1 %) 18.4 L Monocytes % (1.7 - 9.3 %) 10.3 H Eosinophils % (0 - 5 %) 0 Basophils % (0.0 - 2.0 %) 0.5 Absolute Granulocytes (1.4 - 6.5 /CUMM) 5.1 Absolute Lymphocytes (1.2 - 3.4 /CUMM) 1.3 Absolute Monocytes (0.10 - 0.60 /CUMM) 0.7 H Absolute Eosinophils (0.0 - 0.7 /CUMM) 0 Absolute Basophils (0.0 - 0.2 /CUMM) 0 PUBS MCHC (33.0 - 37.0 G/DL) 33.1 07/11 07/11 0323 0323 Toxicology Urine Opiates Screen (>2000 NG/ML) > 4000.00 H Methadone Screen (>300 NG/ML) 52 Barbiturate Screen (>200 NG/ML) < 60 Ur Phencyclidine Scrn (>25 NG/ML) < 6.00 Amphetamines Screen (>1000 NG/ML) < 100 U Benzodiazepines Scrn (>200 NG/ML) < 85 Urine Cocaine Screen (>300 NG/ML) < 50 Urine Cannabis Screen (>50 NG/ML) < 5.00 Urines Urine Color (YEL,AMB,STR) YEL Urine Clarity (CLEAR) CLDY H Urine pH (5.0 - 8.0) 6.0 Ur Specific [place] (1.001 - 1.035) 1.015 Urine Protein (NEG,<30 MG/DL) 100 H Urine Ketones (NEG) NEG Urine Nitrite (NEG) POS H Urine Bilirubin (NEG) NEG Urine Urobilinogen (0.1 - 1.0 EU/dl) 1.0 Ur Leukocyte Esterase (NEG) LARGE H Ur Microscopic SEDIMENT EXAMINED Urine RBC (0 - 5 /HPF) 15-25 H Urine WBC (0 - 2 /HPF) > 75 H Ur Epithelial Cells (NONE,FEW) FEW Urine Hemoglobin (NEG) MOD H Ur Random Creatinine (mg/dL) 70.3 Ur Random Sodium (30 - 90 mmol/L) 37 Ur Random Potassium (mmol/L) 31.7 Fraction Sodium Excret (<1% %) 1.0 Urine Glucose (N MG/DL) NEG 07/11 07/11 0035 0033 Chemistry Sodium (137 - 145 mmol/L) 136 L Potassium (3.5 - 5.1 mmol/L) 5.2 H Chloride (98 - 107 mmol/L) 98 Carbon Dioxide (22 - 30 mmol/L) 21 L Anion Gap (5 - 16) 17 H BUN (7 - 17 mg/dL) 34 H Creatinine (0.5 - 1.0 mg/dL) 2.5 H Estimated GFR (>60 ml/min) 20 L BUN/Creatinine Ratio (7 - 25 %) 13.6 Glucose (65 - 99 mg/dL) 130 H Serum Osmolality (285 - 295 MOSM/KG) 295 Calcium (8.4 - 10.2 mg/dL) 9.6 Phosphorus (2.5 - 4.5 mg/dL) 3.2 Magnesium (1.6 - 2.3 mg/dL) 1.5 L Total Bilirubin (0.2 - 1.3 mg/dL) 1.8 H AST (14 - 36 U/L) 38 H ALT (9 - 52 U/L) 28 Alkaline Phosphatase (<127 U/L) 108 Troponin I (< 0.11 ng/ml) 0.50 *H Qzn-H-Txytrkdoshd Pept (<125 pg/mL) 8500 H Cancelled Total Protein (6.3 - 8.2 g/dL) 8.7 H Albumin (3.5 - 5.0 g/dL) 4.2 Globulin (1.9 - 4.2 gm/dL) 4.5 H Albumin/Globulin Ratio (1.1 - 2.2 %) 0.9 L Amylase (30 - 110 U/L) 110 Lipase (23 - 300 U/L) 224 TSH (0.270 - 4.200 uIU/mL) 2.140 Free T4 (0.64 - 1.79 ng/dL) 1.59 Coagulation PT (9.4 - 12.5 SEC) 14.7 H INR (0.90 - 1.19) 1.40 H APTT (25 - 37 SEC) 30 Hematology CBC w Diff NO MAN DIFF REQ WBC (4.8 - 10.8 /CUMM) 16.7 H RBC (4.20 - 5.40 /CUMM) 4.27 Hgb (12.0 - 16.0 G/DL) 13.1 Hct (37 - 47 %) 39.1 MCV (81.0 - 99.0 FL) 91.7 MCH (27.0 - 31.0 PG) 30.6 RDW (11.5 - 14.5 %) 15.9 H Plt Count (130 - 400 /CUMM) 93 L MPV (7.4 - 10.4 FL) 9.2 Gran % (42.2 - 75.2 %) 76.2 H Lymphocytes % (20.5 - 51.1 %) 14.3 L Monocytes % (1.7 - 9.3 %) 9.0 Eosinophils % (0 - 5 %) 0.1 Basophils % (0.0 - 2.0 %) 0.4 Absolute Granulocytes (1.4 - 6.5 /CUMM) 12.7 H Absolute Lymphocytes (1.2 - 3.4 /CUMM) 2.4 Absolute Monocytes (0.10 - 0.60 /CUMM) 1.5 H Absolute Eosinophils (0.0 - 0.7 /CUMM) 0 Absolute Basophils (0.0 - 0.2 /CUMM) 0.1 PUBS MCHC (33.0 - 37.0 G/DL) 33.4 Microbiology Date/Time Procedure - Status Source Growth 07/11 050 Blood Culture - RECD BLOOD 07/11 0458 Blood Culture - RECD BLOOD 07/11 032 Urine Culture - RECD URINE ROUT Vital Signs Date Time Temp Pulse Resp B/P Pulse O2 O2 Flow FiO2 Ox Delivery Rate 07/11 0914 90 121/71 07/11 0848 94 106/64 07/11 08 98 Nasal 2.0L Cannula 07/11 799 98.0 96 16 119/74 100 Room Air 07/11 0655 98 20 105/53 97 Room Air 07/11 0607 98.5 85 20 101/52 97 Room Air 07/11 0426 99.1 94 18 88/62 100 Nasal 2.0L Cannula 07/11 0302 86/60 07/11 0211 100.3 118 18 88/62 98 Nasal 2.0L Cannula 07/11 0110 75 18 96/71 98 Nasal 2.0L Cannula 07/11 0100 99 Non 10L ReBreather 07/11 0059 99.4 130 20 95/77 94 Non 10L ReBreather 07/11 0055 114 103/80 07/11 0040 86 20 104/67 98 Non 10L ReBreather 07/11 0039 164 20 127/73 07/11 0035 164 20 127/73 99 Non 10L ReBreather Intake & Output 07/11 1600 07/11 0800 07/11 0000 Intake Total 3000 Output Total 220 Balance 2780 Intake, IV 3000 Output, Urine 220 Patient 79.379 kg Weight Disposition Summary Disposition Principal Diagnosis: 1. atrial fibrillation , increased heart rate causing defibrillator shocks on multiple occassions. 2. Positive troponing ,suspected ACS. Additional Diagnosis: 3.h/o HTN 4.h/o antiphospholipid syndrome 5.h/o bladder cancer 6.h/o chronic pain Discharge Disposition: other general hospital Discharge Instructions General Discharge Information Code Status: Full Code Patient's Diet: heart heathy Patient's Activity: As tolerated Follow-Up Instructions/Appts: Please follow up with your hospital pharmacist within one week of discharge. Medications at Discharge Discharge Medications: Stop taking the following medications: Warfarin Sodium (Coumadin) 2.5 MG TABLET ORAL See Instructions Continue taking these medications: Morphine Sulfate (Ms Contin) 30 MG TABLET.ER 1 Tablet ORAL 2 x Daily as needed Days = 1 Comments: Last Taken:NOT GIVEN Time: Furosemide (Lasix) 20 MG TABLET 1 Tablet ORAL DAILY Days = 30 Comments: Last Taken:NOT GIVEN Time: Isosorbide Mononitrate (Isosorbide Mononitrate ER) 60 MG TAB.ER.24H 1 Tablet ORAL DAILY Comments: Last Taken:NOT GIVEN Time: Duloxetine HCl (Cymbalta) 60 MG CAPSULE.DR 1 Capsule ORAL DAILY Comments: Last Taken:NOT GIVEN Time: Valsartan (Diovan) 80 MG TABLET 1 Tablet ORAL DAILY Comments: Last Taken:NOT GIVEN Time: Oxycodone HCl (Roxicodone) 30 MG TABLET 1-2 Tablet ORAL EVERY SIX HOURS NEEDED as needed for CHRONIC PAIN Comments: Last Taken:07/11/16 Time:0930 Morphine Sulfate (Ms Contin) 15 MG TABLET.ER 1 Tablet ORAL TWICE DAILY Comments: Last Taken:NOT GIVEN Time: Start taking the following new medications: Heparin (Heparin-1/2NS 25,000 Units/500) 25,000 UNIT/500 ML (50 UNIT/ML) IV.SOLN 12 units/HR INTRAVEN CONTINUOUS INFUSION Days = 1 No Refills Instructions: 19ML/HOUR OF HEPARIN (12 UNITS/KG/HOUR) Comments: Last Taken:07/11/16 Time:CONTINUOUS Amiodarone in Dextrose,Iso-Osm (Nexterone 360 MG/200 Ml Bag) 360 MG/200 ML (1.8 MG/ML) PLAST..BAG 1 Unit INTRAVEN See Instructions Days = 1 No Refills Instructions: RUN FOR FIRST SIX HOURS AT 1MG/MINUTE ( 360MG) NEXT 18 HOURS AT 0.5MG.MINUTE ( 540 MG) Comments: Last Taken:07/11/16 Time:CONTINUOUS Copies To: OLIVER OLSON,ANDREI V. Attending MD Review Statement Documenting Attending: OLIVER OLSON,ANDREI Kothari
--- NOTE | 2016-07-11 12:30 | NUR ---
HEPARIN GTT STARTED.
[2016-07-11 13:03] LABS: ABSOLUTE BASOPHIL COUNT 0 /CUMM (0.0-0.2); ABSOLUTE EOSINOPHIL COUNT 0 /CUMM (0.0-0.7); ABSOLUTE GRANULOCYTE CT 6.7 /CUMM (1.4-6.5); ABSOLUTE LYMPH COUNT 1.6 /CUMM (1.2-3.4); ABSOLUTE MONOCYTE COUNT 1.2 /CUMM (0.10-0.60); BASOPHIL % 0.3 % (0.0-2.0); EOSINOPHIL % 0 % (0-5); GRANULOCYTE % 70.1 % (42.2-75.2); HEMATOCRIT 28.7 % (37-47); MEAN CORPUSCULAR HGB 31.6 PG (27.0-31.0); MEAN CORPUSCULAR HGB CONC 34.1 G/DL (33.0-37.0); MEAN CORPUSCULAR VOLUME 92.6 FL (81.0-99.0); MEAN PLATELET VOLUME 8.4 FL (7.4-10.4); PLATELET COUNT 57 /CUMM (130-400); RBC DISTRIBUTION WIDTH 16.2 % (11.5-14.5); WHITE BLOOD CELL COUNT 9.6 /CUMM (4.8-10.8)
--- NOTE | 2016-07-11 13:14 | ECHOCARDIOGRAM REPORT ---
FEI ROMERO Age: 60 : 1955 Gender: F Exam Date: 07/11/2016 08:17 Exam Location: [facility] Ht (in): 62 Wt (lb): 175 BSA: 1.90 BP: 105 / 53 Ordering Physician: TANYA RAZA MD Referring Physician: TANYA RAZA MD Technologist: Moraima Garcia [facility] Room Number: 110 Indications: AFIB/FLUTTER Rhythm: Atrial fibrillation Technical Quality: Fair FINDINGS Left Ventricle Normal size left ventricle. Mild concentric left ventricular hypertrophy. There is mild septal hypokinesis. The other peng contract well. Estimated left ventricular ejection fraction is 45- 50% visually. Right Ventricle Normal right ventricular size and function. Catheter/pacemaker wire in the right ventricular cavity. Right Atrium Normal right atrial size. Catheter/pacemaker wire in the right atrial appendage. Left Atrium Mild left atrial dilatation. Mitral Valve Mild thickening/calcification of the mitral valve leaflets. Mild mitral annular calcification. No mitral regurgitation. Aortic Valve Focal thickening of the aortic valve cusps. No aortic stenosis. No aortic regurgitation. Tricuspid Valve The tricuspid valve is normal in structure and function. There is trace tricuspid regurgitation. Pulmonary artery systolic pressure is normal. Pulmonic Valve Structurally normal pulmonic valve. There is no pulmonic regurgitation. Pericardium Normal pericardium without effusion. No pleural effusion. Great Vessels Normal aortic root dimension. The aortic arch and great vessels are well seen and are normal. CONCLUSIONS Normal size left ventricle. Mild concentric left ventricular hypertrophy. There is mild septal hypokinesis. The other peng contract well. Estimated left ventricular ejection fraction is 45-50% visually. Catheter/pacemaker wire in the right ventricular cavity. Catheter/pacemaker wire in the right atrial appendage. Mild left atrial dilatation. Mild thickening/calcification of the mitral valve leaflets. Mild mitral annular calcification. Pulmonary artery systolic pressure is normal. Andrei Amador M.D. (Electronically Signed) Final Date: 11 July 2016 13:13 MEASUREMENTS (Male / Female) Normal Values 2D ECHO LV Diastolic Diameter PLAX 4.8 cm 4.2 - 5.9 / 3.9 - 5.3 cm LV Systolic Diameter PLAX 3.6 cm 2.1 - 4.0 cm LV Fractional Shortening PLAX 25.0 % 25 - 46 % LV Ejection Fraction 2D Teich 49.4 % IVS Diastolic Thickness 1.1 cm LVPW Diastolic Thickness 1.2 cm LV Relative Wall Thickness 0.5 RV Internal Dim ED PLAX 2.2 cm 1.9 - 3.8 cm LVOT Diameter 1.8 cm Aortic Root Diameter 2.3 cm LA Systolic Diameter LX 5.0 cm 3.0 - 4.0 / 2.7 - 3.8 cm LA Volume 50.0 cm 18 - 58 / 22 - 52 cm Ascending Aorta Diameter 2.7 cm DOPPLER AV Peak Velocity 178.0 cm/s AV Peak Gradient 12.7 mmHg AV Mean Velocity 125.0 cm/s AV Mean Gradient 7.0 mmHg AV Velocity Time Integral 28.5 cm LVOT Peak Velocity 115.0 cm/s LVOT Peak Gradient 5.3 mmHg LVOT Mean Velocity 63.5 cm/s LVOT Mean Gradient 2.0 mmHg LVOT Velocity Time Integral 17.0 cm LVOT Stroke Volume 43.3 cm AV Area Cont Eq vti 1.5 cm AV Area Cont Eq pk 1.6 cm MV Peak Velocity 125.0 cm/s MV Peak Gradient 6.3 mmHg MV Mean Velocity 59.1 cm/s MV Mean Gradient 2.0 mmHg Mitral E Point Velocity 127.0 cm/s MV PHT Velocity 134.0 cm/s MV Deceleration [place] 428.0 cm/s MV Pressure Half Time 93.9 ms MV Area PHT 2.3 cm MV Deceleration Time 195.0 ms TR Peak Velocity 191.0 cm/s TR Peak Gradient 14.6 mmHg Right Atrial Pressure 5.0 mmHg Pulmonary Artery Systolic Pressu 19.6 mmHg Right Ventricular Systolic Press 19.6 mmHg PV Peak Velocity 102.0 cm/s PV Peak Gradient 4.2 mmHg PV Mean Velocity 73.9 cm/s PV Mean Gradient 2.0 mmHg PV Velocity Time Integral 16.6 cm LV E' Lateral Velocity 13.0 cm/s Mitral E to LV E' Lateral Ratio 9.8 LV E' Septal Velocity 7.3 cm/s Mitral E to LV E' Septal Ratio 17.4
--- NOTE | 2016-07-11 14:00 | NUR ---
REPORT GIVEN TO MAXWELL MEZA RN
--- NOTE | 2016-07-11 14:30 | NUR ---
PT TRANSFERRED TO [facility].
== END 2016-07-11 14:30 | disposition short-term general hospital (02) | DRG 316 ==
LOC: ERH 00:27 → ERHI 02:46 → CRI 07:41
PROVIDERS: Internal Medicine; Pediatrics; ADMIT Internal Medicine
DX: T82.118A Breakdown (mechanical) of other cardiac electronic device, initial encounter (principal); I11.9 Hypertensive heart disease without heart failure; I48.91 Unspecified atrial fibrillation; Z85.51 Personal history of malignant neoplasm of bladder; Z87.891 Personal history of nicotine dependence; I25.10 Atherosclerotic heart disease of native coronary artery without angina pectoris; Z95.1 Presence of aortocoronary bypass graft; G89.29 Other chronic pain
CPT/HCPCS: 84133; 84300; CCU; 80307; 81001; 82436; 82570; 87040; 87086; 93005; 93010; 93306; 96361; 96365; 96366; 96375; 99291; J0282; J0713; J1644; J2405

== ENCOUNTER 2016-10-17 02:03 | Emergency (ER) | payer OTHER ==
[~2016-10-17] VITALS: Ht 157.5 cm; Wt 82.6 kg
[~2016-10-17 02:03] MED LIST: CEFTAZIDIME1 G2 IV; COUMADIN2.5 M1 PO; CYMBALTA60 M1 PO; DIOVAN80 M1 PO; HEPARIN-1/25000 UNI1 IV; ISOSORBIDE MONO60 M1 PO; LASIX20 M1 PO; MS CONTIN15 M2 PO; MS CONTIN30 M1 PO; NEXTERONE360 MG/200 IV; ROXICODONE30 M1 PO
[2016-10-17 02:47] LABS: ABSOLUTE BASOPHIL COUNT 0.1 /CUMM (0.0-0.2); ABSOLUTE EOSINOPHIL COUNT 0 /CUMM (0.0-0.7); ABSOLUTE LYMPH COUNT 0.9 /CUMM (1.2-3.4); ABSOLUTE MONOCYTE COUNT 0.3 /CUMM (0.10-0.60); EOSINOPHIL % 0.2 % (0-5); GRANULOCYTE % 59.9 % (42.2-75.2); HEMATOCRIT 28.3 % (37-47); MEAN CORPUSCULAR HGB 31.7 PG (27.0-31.0); MEAN CORPUSCULAR HGB CONC 33.1 G/DL (33.0-37.0); MEAN CORPUSCULAR VOLUME 95.9 FL (81.0-99.0); MEAN PLATELET VOLUME 7.3 FL (7.4-10.4); PLATELET COUNT 77 /CUMM (130-400); RBC DISTRIBUTION WIDTH 15.1 % (11.5-14.5); RED BLOOD CELL CT 2.95 /CUMM (4.20-5.40); WHITE BLOOD CELL COUNT 3.3 /CUMM (4.8-10.8)
[2016-10-17] MEDS ORDERED: MS CONTIN30 M1 PO (02:48)
[2016-10-17] MEDS ORDERED: COREG12.5 M1 PO (02:49)
--- NOTE | 2016-10-17 02:58 | ED NECK/BACK PAIN COMPLAINT ---
History of Present Illness General Chief Complaint: General Adult Stated Complaint: " BACK PAIN [id number],RADIATES TO RT FLANK" Source: patient, family Exam Limitations: no limitations Vital Signs & Intake/Output Vital Signs & Intake/Output Vital Signs Date Time Temp Pulse Resp B/P Pulse O2 O2 Flow FiO2 Ox Delivery Rate 10/17 0428 97.5 95 16 121/62 98 Room Air 10/17 0241 96 Room Air 10/17 0223 96.5 82 18 115/73 96 Room Air Allergies Coded Allergies: STATINS (effects liver 10/17/16) Reconcile Medications Amiodarone in Dextrose,Iso-Osm (Nexterone 360 MG/200 Ml Bag) 360 MG/200 ML (1.8 MG/ML) PLAST..BAG 1 UNIT IV SI HEART RATE AND RHYTHM RUN FOR FIRST SIX HOURS AT 1MG/MINUTE ( 360MG) NEXT 18 HOURS AT 0.5MG.MINUTE ( 540 MG) Carvedilol (Coreg) 12.5 MG TABLET 12.5 MG PO BID HEART (Reported) Ciprofloxacin HCl (Cipro) 500 MG TABLET 1 TAB PO BID INFECTION Duloxetine HCl (Cymbalta) 60 MG CAPSULE.DR 1 CAP PO DAILY PAIN MX (Reported) Furosemide (Lasix) 20 MG TABLET 1 TAB PO DAILY WATER PILL (Reported) Heparin (Heparin-1/2NS 25,000 Units/500) 25,000 UNIT/500 ML (50 UNIT/ML) IV.SOLN 12 u/H IV CONTINOUS INFUSION BLOOD THINNER 19ML/HOUR OF HEPARIN (12 UNITS/KG/HOUR) Isosorbide Mononitrate (Isosorbide Mononitrate ER) 60 MG TAB.ER.24H 1 TAB PO DAILY HEART HEALTH (Reported) Morphine Sulfate (Ms Contin) 30 MG TABLET.ER 1 TAB PO BIDP CHRONIC PAIN ( Reported) Morphine Sulfate (Ms Contin) 15 MG TABLET.ER 1 TAB PO BID PAIN MX (Reported) Morphine Sulfate (Ms Contin) 30 MG TABLET.ER 60 MG PO TID PAIN (Reported) Oxycodone HCl (Roxicodone) 30 MG TABLET 1-2 TAB PO Q6P PRN CHRONIC PAIN ( Reported) Valsartan (Diovan) 80 MG TABLET 1 TAB PO DAILY BLOOD PRESSURE (Reported) Triage Note: pt has hx low back pain with sciatica pt has been having nightmares and trashing in bed pt has woken up screaming a couple of times, pt has implanted defib pt has family hx parkinsons Triage Nurses Notes Reviewed? yes Onset: Gradual Duration: week(s): (FEW), worse persistent since (LAST WEEK) Timing: recent history Location: T-spine, lumbar spine Radiation: none Context: NO TRAUMA Associated Symptoms: abdominal pain, TWITCHING, NIGHTMARES, WAKES UP HOURLY, CONFUSION, ABDOMINAL PAIN HPI: 61 year old female who presents to the ER with her daughter for increasing low back pain for the past week. She has a history of right sided sciatica and states that recently the lower back pain has moved into the middle. Also the daughter reports that she has been having tonic/jerking movements and is concerned that she has something neurologic going on. Past History Travel History Traveled to [place] past 21 day No Medical History Any Pertinent Medical History? see below for history Neurological: NONE EENT: NONE Cardiovascular: AFIB, CAD, hypertension Respiratory: NONE Gastrointestinal: NONE Hepatic: NONE (FROM STATINS), cirrhosis Renal: BLADDER STENTS Musculoskeletal: NONE Psychiatric: NONE Endocrine: NONE Blood Disorders: NONE Cancer(s): bladder cancer HEMSTITCHER/Reproductive: NONE History of MRSA: No History of VRE: No History of CDIFF: No Surgical History Surgical History: pacer/defibrillator Psychosocial History Who do you live with Son Services at Home Intravenous Care What is your primary language Nepali Tobacco Use: Quit >30 days ago Family History Hx Contributory? No Review of Systems Review of Systems Constitutional: Reports: malaise, weakness. Denies: chills, fever. Eyes: Denies: blurred vision. Ears, Nose, Throat, Mouth: Denies: ear pain, nose pain, mouth swelling. Respiratory: Reports: cough, short of breath. Denies: sputum production. Cardiovascular: Reports: chest pain. Gastrointestinal/Abdominal: Reports: abdominal pain, nausea. Musculoskeletal: Reports: back pain, muscle pain, muscle stiffness, neck pain. Skin: Reports: see HPI. Neurological/Psychological: Reports: anxiety, confusion, numbness. Physical Exam Physical Exam General Appearance: well developed/nourished, alert, awake, anxious, mild distress, obese Head: atraumatic, normal appearance Eyes: Bilateral: other (2 mm bilatearl). Ears, Nose, Throat, Mouth: hearing grossly normal, moist mucous membrane Neck: normal inspection, supple, full range of motion Respiratory: normal breath sounds, chest non-tender, no respiratory distress Cardiovascular: regular rate/rhythm Peripheral Pulses: 2+ radial (R), 2+ radial (L) Gastrointestinal: normal bowel sounds, soft, tenderness (in all quadrants), NO REBOUND/GUARDING Back: normal inspection, TENDER TO PALPATION ALOND MIDLINE, TENDER RIGHT FLANK Extremities: TENDER WITH RANGE OF MOTION Neurologic/Psych: no motor/sensory deficits, awake, alert, oriented x 3 Skin: intact Progress Differential Diagnosis: cauda equina syn, herniated disc, myofascial strain, pyelo/UTI, sciatica, spinal cord inj, thoracic outlet syn, T/L spine injury, ureterolithiasis, SLEEP APNEA, PNEUMONIA, HYPERCARBIA, OVERMEDICATION WTIH NARCOTICS Plan of Care: Orders Procedure Date/time Status Add-on Test (ER Only) 10/17 0435 Active CULTURE,URINE 10/17 0340 Active ARTERIAL BLOOD GAS (GEN) 10/17 0305 Complete URINE DRUGS OF ABUSE 10/17 0258 Complete EKG 10/17 0244 Active URINALYSIS 10/17 0240 Complete LIPASE 10/17 0234 Complete COMPREHENSIVE METABOLIC PANEL 10/17 0234 Complete CBC WITHOUT DIFFERENTIAL 10/17 0234 Complete AMYLASE 10/17 0234 Complete Laboratory Tests 10/17/16 0415: pH 7.45, pCO2 41, pO2 85, HCO3 28, ABG O2 Sat (Measured) 97.0, P-50 (Temp Corrected) Y, Carboxyhemoglobin 0.3 L, O2 Concentration % RA, Temperature 96.5 L, Phlebotomy Draw Site RIGHT RADIAL 10/17/16 0340: Urine Opiates Screen > 4000.00 H, Methadone Screen 99, Barbiturate Screen < 60, Ur Phencyclidine Scrn 8.20, Amphetamines Screen < 100, U Benzodiazepines Scrn < 85, Urine Cocaine Screen < 50, Urine Cannabis Screen 6.50, Urine Color YEL, Urine Clarity CLDY H, Urine pH 6.0, Ur Specific [place] 1.020, Urine Protein 30 H, Urine Ketones NEG, Urine Nitrite POS H, Urine Bilirubin NEG, Urine Urobilinogen 1.0, Ur Leukocyte Esterase LARGE H, Ur Microscopic SEDIMENT EXAMINED, Urine RBC 15-25 H, Urine WBC 25-50 H, Ur Epithelial Cells MOD H, Urine Bacteria PACKD H, Urine Hemoglobin LARGE H, Urine Glucose NEG 10/17/16 0240: Anion Gap 13, Estimated GFR 42 L, BUN/Creatinine Ratio 13.8, Glucose 84, Calcium 9.2, Total Bilirubin 0.7, AST 32, ALT 28, Alkaline Phosphatase 124, Total Protein 7.2, Albumin 3.5, Globulin 3.7, Albumin/Globulin Ratio 0.9 L, Amylase 123 H, Lipase 372 H, CBC w Diff NO MAN DIFF REQ, RBC 2.95 L, MCV 95.9 , MCH 31.7 H, RDW 15.1 H, MPV 7.3 L, Gran % 59.9, Lymphocytes % 27.2, Monocytes % 9.7 H, Eosinophils % 0.2, Basophils % 3.0 H, Absolute Granulocytes 2.0, Absolute Lymphocytes 0.9 L, Absolute Monocytes 0.3, Absolute Eosinophils 0 , Absolute Basophils 0.1, PUBS MCHC 33.1 Microbiology 10/17 0340 URINE ROUT: Urine Culture - RECD DISCUSSED RESULTS OF WORK UP WITH PATIENT AND FAMILY MEMBERS AT BEDSIDE AT [facility]. SHE IS REQUESTING A NEW PRIMARY CARE DOCTOR AND ALSO A NEUROLOGIST. WILL CONTINUE TO FOLLOW UP WITH HER RECORDS SPECIALIST AND SILO TENDER. ABX PRESCRIBED. (CHACORTA OLSON,ANTONIO) Diagnostic Imaging: Viewed by Me: Radiology Read, CT Scan. Discussed w/RAD: Radiology Read, CT Scan. Initial ED EKG: pacemaker rhythm Prior EKG: unchanged Comments: PATIENT: FEI ROMERO PRESENT AGE: 61 PATIENT ACCOUNT NO: [id number] : 59 LOCATION: [facility] ORDERING PHYSICIAN: ANTONIO WHATLEY MD SERVICE DATE: 10/17/16 EXAM TYPE: CAT - CT LUMB SPINE WO IV CONTRAST; CT THOR SPINE WO IV CONTRAST EXAMINATION: CT THORACIC AND LUMBAR SPINE. CLINICAL INFORMATION: Worsening severe low back pain. Worse with movement. COMPARISON: Chest radiograph 12/19/2011. TECHNIQUE: Object Oriented Programmer images were obtained. CT acquisition of the thoracic and lumbar spine was performed without intravenous administration of contrast. Data was reformatted into multiplanar images at the acquisition workstation. DLP: 1626.55 mGy-cm. 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 T13 ribs are hypoplastic. There is an age indeterminant compression fracture of the T11 vertebral body with impaction of the upper endplate and subtle anterior wedging with approximately 25% vertebral body height loss anteriorly. There is also a subtle age indeterminate upper T5 endplate impaction with less than 25% vertebral body height loss centrally. There is also an age indeterminant compression fracture of the L2 vertebral body with impaction of the upper endplate resulting in 30% vertebral body height loss centrally. No substantial anterior wedging. There is no overt retropulsion of the posterior cortex at any of these 3 levels. There is slight grade 1 anterolisthesis of L4 on L5 and slight grade 1 anterolisthesis of L5 on S1 related to advanced facet degenerative changes at these 2 levels. Grossly no evidence of canal compromise. Although only partially included within the [id number] this examination and the spleen appears to be grossly enlarged. Calcified atheromatous plaque involves the abdominal aorta and iliac vessels. 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 There is an age-indeterminate compression fracture of T11 that may be acute with impaction of the upper endplate resulting in approximately 25% vertebral body height loss anteriorly. There are also chronic appearing compression fractures of T5 and L2. No substantial anterior wedging at either of these 2 levels. Limited visualization of the retroperitoneal structures reveals a grossly enlarged spleen. A dedicated contrast-enhanced CT scan of the abdomen is recommended for better anatomic characterization of this finding. 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 DICTATED BY: MUNIRA SOLIS MD DATE/TIME DICTATED:10/17/16446 STEM SIZER:SILVANA DATE/TIME TRANSCRIBED:10/17/16446 CONFIDENTIAL, DO NOT COPY WITHOUT APPROPRIATE AUTHORIZATION. <Electronically signed in Other Vendor System> SIGNED BY: MUNIRA SOLIS MD 10/17 0501 PATIENT: FEI ROMERO PRESENT AGE: 61 PATIENT ACCOUNT NO: [id number] : 59 LOCATION: [facility] ORDERING PHYSICIAN: ANTONIO WHATLEY MD SERVICE DATE: 10/17/16 EXAM TYPE: CAT - CT LUMB SPINE WO IV CONTRAST; CT THOR SPINE WO IV CONTRAST EXAMINATION: CT THORACIC AND LUMBAR SPINE. CLINICAL INFORMATION: Worsening severe low back pain. Worse with movement. COMPARISON: Chest radiograph 12/19/2011. TECHNIQUE: Object Oriented Programmer images were obtained. CT acquisition of the thoracic and lumbar spine was performed without intravenous administration of contrast. Data was reformatted into multiplanar images at the acquisition workstation. DLP: 1626.55 mGy-cm. 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 T13 ribs are hypoplastic. There is an age indeterminant compression fracture of the T11 vertebral body with impaction of the upper endplate and subtle anterior wedging with approximately 25% vertebral body height loss anteriorly. There is also a subtle age indeterminate upper T5 endplate impaction with less than 25% vertebral body height loss centrally. There is also an age indeterminant compression fracture of the L2 vertebral body with impaction of the upper endplate resulting in 30% vertebral body height loss centrally. No substantial anterior wedging. There is no overt retropulsion of the posterior cortex at any of these 3 levels. There is slight grade 1 anterolisthesis of L4 on L5 and slight grade 1 anterolisthesis of L5 on S1 related to advanced facet degenerative changes at these 2 levels. Grossly no evidence of canal compromise. Although only partially included within the [id number] this examination and the spleen appears to be grossly enlarged. Calcified atheromatous plaque involves the abdominal aorta and iliac vessels. 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 There is an age-indeterminate compression fracture of T11 that may be acute with impaction of the upper endplate resulting in approximately 25% vertebral body height loss anteriorly. There are also chronic appearing compression fractures of T5 and L2. No substantial anterior wedging at either of these 2 levels. Limited visualization of the retroperitoneal structures reveals a grossly enlarged spleen. A dedicated contrast-enhanced CT scan of the abdomen is recommended for better anatomic characterization of this finding. 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 DICTATED BY: MUNIRA SOLIS MD DATE/TIME DICTATED:10/17/16446 STEM SIZER:SILVANA DATE/TIME TRANSCRIBED:10/17/16446 CONFIDENTIAL, DO NOT COPY WITHOUT APPROPRIATE AUTHORIZATION. <Electronically signed in Other Vendor System> SIGNED BY: MUNIRA SOLIS MD 10/17 0501 PATIENT: FEI ROMERO PRESENT AGE: 61 PATIENT ACCOUNT NO: [id number] : 59 LOCATION: [facility] ORDERING PHYSICIAN: ANTONIO WHATLEY MD SERVICE DATE: 10/17/16 EXAM TYPE: RAD - XRY-CHEST XRAY, PA AND LATERAL EXAMINATION: XR CHEST CLINICAL INFORMATION: Fevers and chills. Cough. COMPARISON: Chest radiograph 01/03/2012. TECHNIQUE: 2 views of the chest were obtained. FINDINGS: A left pectoral ICD is in place. Chronic changes of a median sternotomy are noted. Ill-defined reticular markings are visualized within the lung bases that most likely represent a manifestation of subsegmental atelectasis. No overt consolidative disease or effusion. The cardiac silhouette and upper mediastinal contours are normal. Mild chronic degenerative arthrosis of both shoulders is noted. No acute osseous finding. IMPRESSION: Ill-defined reticular markings within the lung bases most likely represent a manifestation of subsegmental atelectasis. No overt consolidative disease or effusion. DICTATED BY: MUNIRA SOLIS MD DATE/TIME DICTATED:10/17/16457 STEM SIZER:SILVANA DATE/TIME TRANSCRIBED:10/17/16457 CONFIDENTIAL, DO NOT COPY WITHOUT APPROPRIATE AUTHORIZATION. <Electronically signed in Other Vendor System> SIGNED BY: MUNIRA SOLIS MD 10/17 0502 Departure Departure Time of Disposition: 0508 Disposition: HOME OR SELF CARE Condition: Stable Clinical Impression Primary Impression: Pyelonephritis Secondary Impressions: Compression fracture, Spleen enlarged Referrals: DEL OLSON,PERFECTO YOO MD,LEEANNA FRANCO MD,YUE Ramesh (PCP/Family) CARITO OLSON,RADHA HOWE [facility] Additional Instructions: Take the ciprofloxacin as directed. Please follow-up with the attached list of primary care doctors provided here. Take a copy of your imaging and blood tests that we did in the emergency department. I am also giving you a neurology follow-up as requested. Return to the ER for any changing or worsening symptoms. Departure Forms: Customer Survey General Discharge Information Prescriptions: Current Visit Scripts Ciprofloxacin HCl (Cipro) 1 TAB PO BID #19 TAB
[2016-10-17 04:28] VITALS: BP 121/62
--- NOTE | 2016-10-17 05:01 | CT SCAN REPORT ---
EXAMINATION: CT THORACIC AND LUMBAR SPINE. CLINICAL INFORMATION: Worsening severe low back pain. Worse with movement. COMPARISON: Chest radiograph 12/19/2011. TECHNIQUE: Heel Sewer images were obtained. CT acquisition of the thoracic and lumbar spine was performed without intravenous administration of contrast. Data was reformatted into multiplanar images at the acquisition workstation. DLP: 1626.55 mGy-cm. 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 T13 ribs are hypoplastic. There is an age indeterminant compression fracture of the T11 vertebral body with impaction of the upper endplate and subtle anterior wedging with approximately 25% vertebral body height loss anteriorly. There is also a subtle age indeterminate upper T5 endplate impaction with less than 25% vertebral body height loss centrally. There is also an age indeterminant compression fracture of the L2 vertebral body with impaction of the upper endplate resulting in 30% vertebral body height loss centrally. No substantial anterior wedging. There is no overt retropulsion of the posterior cortex at any of these 3 levels. There is slight grade 1 anterolisthesis of L4 on L5 and slight grade 1 anterolisthesis of L5 on S1 related to advanced facet degenerative changes at these 2 levels. Grossly no evidence of canal compromise. Although only partially included within the [id number] this examination and the spleen appears to be grossly enlarged. Calcified atheromatous plaque involves the abdominal aorta and iliac vessels. 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 There is an age-indeterminate compression fracture of T11 that may be acute with impaction of the upper endplate resulting in approximately 25% vertebral body height loss anteriorly. There are also chronic appearing compression fractures of T5 and L2. No substantial anterior wedging at either of these 2 levels. Limited visualization of the retroperitoneal structures reveals a grossly enlarged spleen. A dedicated contrast-enhanced CT scan of the abdomen is recommended for better anatomic characterization of this finding. 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
--- NOTE | 2016-10-17 05:02 | RADIOLOGY REPORT ---
EXAMINATION: XR CHEST CLINICAL INFORMATION: Fevers and chills. Cough. COMPARISON: Chest radiograph 01/03/2012. TECHNIQUE: 2 views of the chest were obtained. FINDINGS: A left pectoral ICD is in place. Chronic changes of a median sternotomy are noted. Ill-defined reticular markings are visualized within the lung bases that most likely represent a manifestation of subsegmental atelectasis. No overt consolidative disease or effusion. The cardiac silhouette and upper mediastinal contours are normal. Mild chronic degenerative arthrosis of both shoulders is noted. No acute osseous finding. IMPRESSION: Ill-defined reticular markings within the lung bases most likely represent a manifestation of subsegmental atelectasis. No overt consolidative disease or effusion.
[2016-10-17] MEDS ORDERED: CIPRO500 M1 PO (05:21)
== END 2016-10-17 05:45 ==
LOC: ERH 02:03
PROVIDERS: Emergency Medicine
DX: N12 Tubulo-interstitial nephritis, not specified as acute or chronic (principal); R16.1 Splenomegaly, not elsewhere classified; M84.48XA Pathological fracture, other site, initial encounter for fracture
CPT/HCPCS: 80307; 81001; 87086; 93005; 93010